=== PATIENT | female | born 1965 | race Caucasian/White ===

== ENCOUNTER → 2016-09-27 | Day surgery (SDC) | payer OTHER ==
[~2016-09-27] MED LIST: ACET325T9 PO; AMLO1CAP12 PO; CHOL10003 PO; IBUP-1007 PO; IV RINGERS,LACTATED 1000ML 1,000 ML IV SCH; LACT1CAP29 PO; LIDOCAINE 2% PF Vial for OR 5 ML VIAL. ONE; PROPOFOL 40 ML IV ONE
[2016-09-27 09:37] VITALS: BP 91/72
[2016-09-27 12:21] LABS: NEG OBC UR NEG; POS OBC UR POS
--- NOTE | 2016-09-29 17:18 | PATHOLOGY ---
PATHOLOGY REPORT * * * * * * * * FINAL DIAGNOSIS: Colon biopsy, sigmoid polyp: - Hyperplastic polyp. COMMENT: There are no adenomatous changes or evidence of malignancy. (JPM:csd; d/t: 09/29/2016) REPORT ELECTRONICALLY SIGNED BY: Johnathan Cannon M.D. DATE/TIME: 09/29/2016 17:16 * * * * * * * * GROSS PATHOLOGY: Received in formalin labeled "Shanta Ray, sigmoid polyp," are 2 segments of jolley soft tissue measuring 0.3 cm in aggregate dimensions and ranging from 0.1 to 0.2 cm in maximum dimension. The specimen is submitted entirely in cassette A1. (SNA; 09/28/2016) INITIAL CPT CODE(S): A; 75977 Professional services performed by [facility] [place] [address] Technical services performed by [facility] at [address] [place] [address]. SPECIMEN(S) RECEIVED: A.Sigmoid polyp CLINICAL HISTORY: Screening PATIENT: SHANTA RAY /AGE: 409/01/1965 (Age: 51) PATIENT #: [id number] ALT CASE #: SPECIMEN COLLECTION DATE: 09/27/2016 SPECIMEN RECEIVED DATE: 09/27/2016 [facility] - [address] [place] [address] - PHONE: [phone] * * * END OF REPORT * * *
== END | disposition home or self-care (01) ==
LOC: ENDOS 07:29
PROVIDERS: ATTEND Internal Medicine Gastroenterology
DX: Z12.11 Encounter for screening for malignant neoplasm of colon (principal); K64.0 First degree hemorrhoids; D12.5 Benign neoplasm of sigmoid colon; K57.30 Diverticulosis of large intestine without perforation or abscess without bleeding; I10 Essential (primary) hypertension; M19.90 Unspecified osteoarthritis, unspecified site; Z80.3 Family history of malignant neoplasm of breast; Z82.49 Family history of ischemic heart disease and other diseases of the circulatory system; Z72.89 Other problems related to lifestyle; F17.200 Nicotine dependence, unspecified, uncomplicated
CPT/HCPCS: 45380; 81025; J2704; 88305

== ENCOUNTER → 2019-06-16 | Outpatient (CLI) | payer OTHER ==
[2016-09-27 09:37] VITALS: BP 91/72
[~2019-06-16] MED LIST changes: -AMLO1CAP12 PO; +AMLO1CAP13 PO; -IV RINGERS,LACTATED 1000ML 1,000 ML IV SCH; -LIDOCAINE 2% PF Vial for OR 5 ML VIAL. ONE; -PROPOFOL 40 ML IV ONE
--- NOTE | 2019-06-16 16:21 | KCIC ---
STUDY: MRI of the left knee without contrast INDICATION: Chronic bilateral knee pain. Pain at the lateral aspect of the left knee. COMPARISON: None. TECHNIQUE: Multiplanar MR imaging of the left knee performed without the use of intravenous or intra-articular contrast. FINDINGS: Menisci: Full-thickness radial tear at the posterior root of the medial meniscus. Mild associated medial meniscal body extrusion from the joint line by just over 3 mm. Intact lateral meniscus. Cruciate ligaments: Intact ACL and PCL. Collateral ligaments: No acute injury of the medial or lateral collateral ligaments. Mild thickening at the proximal aspect of the MCL could represent the sequela of prior sprain. Tendons: Intact extensor mechanism. The additional tendons at the knee are intact. 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 High-grade chondrosis at the lower margin of the medial trochlea. Lateral compartment: No full-thickness defect. Medial compartment: Partial thickness chondrosis at the posterior aspect of the medial compartment in the region of meniscal tearing. Bones: Subchondral cystic change relating to overlying chondrosis at the medial patellar facet and lower aspect of the medial trochlea. No acute fracture or focal aggressive marrow signal abnormality. Miscellaneous: Moderate sized knee joint effusion. IMPRESSION: 1. Full-thickness radial tear at the medial meniscus posterior root with mild associated extrusion of the medial meniscal body from the joint line. Intact lateral meniscus. 2. Intact cruciate ligaments. No acute injury of the collateral ligaments. 3. 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 Partial thickness chondrosis at the posterior aspect of the medial compartment in the region of meniscal tearing. 4. Moderate knee joint effusion. Electronically signed by: WILFREDO DOW MD (06/16/2019 4:18 PM) [id number]
--- NOTE | 2019-06-16 16:56 | KCIC ---
STUDY: MRI of the right knee without contrast INDICATION: Generalized knee pain. COMPARISON: None. TECHNIQUE: Multiplanar MR imaging of the right knee performed without the use of intravenous or intra-articular contrast. FINDINGS: Menisci: Extensive complex tearing of the medial meniscus that extends through the body and hornsas well as involves both root insertions. At the posterior root there is complete to near complete radial tearing. Corresponding medial meniscal extrusion from the joint line by approximately 6 to 7 mm. Heterogeneous signal at the lateral meniscus posterior horn/root interface but without a discrete full-thickness tear. Cruciate ligaments: Intact PCL. Heterogeneous but intact ACL. Collateral ligaments: No acute injury of the medial or lateral collateral ligaments. Tendons: Intact extensor mechanism. The additional tendons at the knee are intact. Cartilage: Patellofemoral: Full-thickness fissure involving the medial patellar facet, image 8 series 3. High-grade chondrosis within and immediately adjacent to the trochlear groove and also involving the far inferior aspect of the medial trochlea where there is subchondral edema/cystic change, image 11 series 6. Lateral compartment: Chondral heterogeneity at the weightbearing aspect without full thickness defect. Chondral heterogeneity also at the far posterior nonweightbearing aspect of the lateral femoral condyle. Medial compartment: Diffuse full-thickness chondral loss throughout the weightbearing compartment and extending to involve the proximal nonweightbearing aspect as well. Scattered associated subchondral edema and mild cystic change such as at the posterior aspect of the medial tibial plateau, image 7 series 6. Bones: Scattered osteophytes most notable at the medial compartment. No acute fracture or aggressive marrow signal abnormality. Miscellaneous: Moderate volume knee joint effusion. IMPRESSION: 1. Extensive complex tearing throughout the medial meniscus to include full-thickness or near full-thickness tearing at the posterior root insertion. Corresponding prominent medial meniscal extrusion from the joint line between 6 to 7 mm. Heterogeneous signal at the lateral meniscus posterior horn/root junction without a full-thickness tear. 2. Intact PCL. Heterogeneous but intact ACL. No acute collateral ligamentous injury. 3. Severe diffuse full-thickness medial compartment chondral loss throughout the weightbearing compartment also extending to involve the posterior nonweightbearing aspect. Less pronounced chondrosis at the patellofemoral compartment more so than the lateral compartment as detailed above. Scattered associated areas of subchondral edema/cystic change. 4. Moderate knee joint effusion. Tricompartmental osteophyte formation. Electronically signed by: WILFREDO DOW MD (06/16/2019 4:53 PM) [id number]
== END | disposition home or self-care (01) ==
LOC: KCIC MRI 11:33
PROVIDERS: ATTEND Family Medicine
DX: S83.242A Other tear of medial meniscus, current injury, left knee, initial encounter (principal); S83.241A Other tear of medial meniscus, current injury, right knee, initial encounter; M25.462 Effusion, left knee; M25.461 Effusion, right knee; M25.761 Osteophyte, right knee; X58.XXXA Exposure to other specified factors, initial encounter; Y93.89 Activity, other specified; Y92.89 Other specified places as the place of occurrence of the external cause; Y99.8 Other external cause status
CPT/HCPCS: 73721